=== PATIENT | male | born 1960 | race Caucasian/White ===

== ENCOUNTER → 2018-12-08 | Outpatient (CLI) | payer MEDICARE ==
--- NOTE | 2018-12-08 19:46 | US ---
EXAM DESCRIPTION: Soft Tissue,Head/Neck: ULTRASOUND. CLINICAL HISTORY: 58 years Male LOCALIZED SWELLING, MASS AND LUMP COMPARISON: None Available. TECHNIQUE: Transcutaneous scanning: Nicholas-scale and Doppler modes. FINDINGS: Edema noted in the left parotid gland and minimal edema in the adjacent fatty tissues. A hypoechoic to anechoic region is noted in the inferior gland with minimal wall thickening measuring 9.8 x 8.2 x 5.3 mm. Possible echogenic posterior inferior calcification. Minimal vascularity of the margin. No tract is seen extending to the subcutaneous adipose tissue. No masses seen in the overlying subcutaneous adipose tissue. Unable to evaluate the deep compartment of the gland. Overall the gland is more vascular than the right parotid gland which demonstrates normal echogenicity. IMPRESSION: Complicated cyst versus abscess in the inferior left parotid gland. Could also represent an infected Warthin tumor or benign mixed tumor. Less likely to represent an infected intraparotid lymph node. No tract is seen extending into the subcutaneous adipose tissue from this process. Unable to evaluate the deep compartment of the gland. Edema in the adjacent parotid gland which demonstrates slightly increased vascularity. Electronically signed by: Yousif Santamaria MD 12/08/2018 7:44 PM CDT
== END ==
LOC: US 09:55
PROVIDERS: ATTEND Nurse Practitioner Family
DX: K11.9 Disease of salivary gland, unspecified (principal)